=== PATIENT | male | born 1980 | race Caucasian/White ===

== ENCOUNTER 2017-01-31 07:21 | Inpatient (IN) | payer OTHER ==
--- NOTE | ~2017-01-31 | DS ---
Unit #: [id number] #: [id number] Patient: [facility]AND[facility] [id number] [facility] [address] [place] [address] [id number] I MR#: [id number] NAME: BENNY SANDERS ROOM: P122 Age: 36 Sex: M Admission Date: 01/31/2017 : 1980 Discharge Date: 02/06/2017 Attending Physician: Antonina Mar M.D. Primary Care Physician: Primary Care Physician No DISCHARGE SUMMARY IDENTIFYING DATA Mr. Sanders is a 36-year-old single white male, who is a resident of [place], [place], and was transferred to us from [facility] in [place], [place]. DISCHARGE DIAGNOSES Psychiatric: Major depressive disorder, recurrent, moderate, without psychotic features. Medical: None. Stressors: Moderate psychosocial stressors. HISTORY OF PRESENT ILLNESS Please see initial psychiatric evaluation for details. PAST PSYCHIATRIC HISTORY Please see initial psychiatric evaluation for details. PAST MEDICAL HISTORY Please see initial psychiatric evaluation for details. HOSPITAL COURSE The patient was admitted to the adult psychiatric unit at [facility] herrera Joseph and was oriented to the hospital environment. Routine p.r.n. medications were initiated, and he was started on Celexa 20 mg a day as an antidepressant and was closely monitored. He was taking the medications regularly and was tolerating them fairly well and was able to show a decent and therapeutic response with improvement in depression and anxiety and was willing to continue treatment on an outpatient basis and as such, it was decided that he will be discharged home and will continue treatment on an outpatient basis. DISCHARGE MEDICATIONS Celexa 20 mg a day for depression. DISCHARGE CONDITION Stable. PROGNOSIS Fair. Dictated by... Antonina Mar M.D. Unit #: [id number] #: [id number] Patient: BENNY SANDERS IAA/modl TD: 02/06/2017 06:58 JOB #: [id number] DISCHARGE SUMMARY Page 1 of 1 X Antonina Mar MD X DISCHARGE SUMMARY
--- NOTE | ~2017-01-31 | PN ---
Unit #: [id number] #: [id number] Patient: BENNY CHO [id number] [facility] [address] [place] [address] [id number] MR#: [id number] NAME: BENNY CHO ROOM: P122 Age: 36 Sex: M Admission Date: 01/31/2017 : 1980 Attending Physician: Antonina Mar M.D. Admitting Physician: Antonina Mar M.D. Primary Care Physician: Primary Care Physician Melia AMAYA PROGRESS NOTES DATE 02/05/2017 DISCUSSION Mr. Cho is a 36-year-old, white male who was seen today and chart was reviewed and case was discussed with the staff. He reports doing much better and has been showing improvement in his depression and anxiety and has been cooperative with compliant with the treatment recommendations. He has been taking the medication and tolerating them fairly well with no reported side effects. MENTAL STATUS EXAM Young white male who was casually dressed with fair personal hygiene, appears to be in no acute distress or discomfort. He was awake and alert on interaction with intact orientation. His mood was anxious with congruent affect. He denies any suicidal or homicidal ideation. His insight and judgement remains slightly impaired. TREATMENT PLAN 1. We will continue him on his current medications and treatment protocol. We will monitor his response to the medication and make further adjustments as needed. 2. We will continue to follow up. Dictated by... Ravin Chambers/ming TD: 02/05/2017 23:21 JOB #: [id number] Unit #: [id number] #: [id number] Patient: BENNY CHO PEACHERYLE PROGRESS NOTES Page 1 of 1 X Antonina Mar MD PROGRESS NOTE
--- NOTE | ~2017-01-31 | PA ---
Unit #: [id number] #: [id number] Patient: BENNY SANDERS [id number] [facility] [address] [place] [address] [id number] I MR#: [id number] NAME: BENNY SANDERS ROOM: P110 Age: 36 Sex: M Admission Date: 01/31/2017 : 1980 Date of Assessment: Attending Physician: Antonina Mar M.D. Admitting Physician: Antonina Mar M.D. Primary Care Physician: Primary Care Physician No PSYCHIATRIC ASSESSMENT DATE OF SERVICE 02/01/2017. IDENTIFYING DATA Mr. Sanders is a 36-year-old single white male, who is a resident of [place], [place], and was transferred to us from [facility] in [place], [place]. CHIEF COMPLAINT "I overdosed on 20 baclofen in a suicide attempt." HISTORY OF PRESENT ILLNESS Mr. Sanders is a 36-year-old white male, who was taken to [facility] in [place], [place], on 01/29/2017 after he apparently overdosed on 20 baclofen in a suicide attempt and reports feeling like it was his only option to stop hurting at that time. He reports that he has been feeling more and more depressed over the past couple of months and that he had a domestic dispute with his fiance and spent 34 days in residential and reports that he has felt hopeless and worthless and felt like he has nothing to offer to the people he loves and reports that he did not think about how his actions would affect others and aggressive attempt and does endorse significant depression, anxiety, feelings of hopelessness and helplessness, and currently reports still having suicidal thoughts and as such, recommendation for inpatient level of care was made and the patient was medically cleared at [facility] and then transferred to us. SUBSTANCE ABUSE HISTORY The patient denies any alcohol or drug abuse. PAST PSYCHIATRIC HISTORY The patient has had a history of psychiatric treatment several times in [place], and review of the medical records indicate that currently he is not active in any treatment program, is not seeing a psychiatrist, and is not taking any psychotropic medications. PAST MEDICAL HISTORY No acute or chronic medical illnesses. CURRENT MEDICATIONS None. ALLERGIES No known medication allergies. Unit #: [id number] #: [id number] Patient: BENNY SANDERS PERSONAL AND SOCIAL HISTORY A 36-year-old white male, who reports that he is engaged and lives at home with his fiance and has fairly decent social support system. MENTAL STATUS EXAMINATION Young white male, who was casually dressed with fair personal hygiene, appears to be in no acute distress or discomfort. He was awake and alert on interaction with intact orientation to time, place, and person. His mood was anxious and depressed with a congruent affect. His speech was slow and goal directed. He reports having suicidal ideation, but denies any homicidal ideations and also denies any auditory or visual hallucinations. His insight and judgment remain slightly impaired. DIAGNOSTIC IMPRESSION Psychiatric: Major depressive disorder, recurrent, moderate, without psychotic features. Medical: None. Stressors: Moderate psychosocial stressors. TREATMENT PLAN 1. The patient has presented with a history of mood disorder and has been decompensating and will need inpatient hospitalization for safety and stabilization. We will start him back on his home medications and we will adjust the medications and monitor response. 2. Supportive therapy was provided to the patient. 3. Safe, structured, and nourishing environment will be provided. ESTIMATED LENGTH OF STAY 5 to 7 days. ABILITY TO HELP SELF Limited. WILLINGNESS TO HELP SELF The patient appears to be willing to help self. STRENGTHS 1. Communicative. 2. Cooperative. PROBLEMS 1. Chronic dysphoric symptoms. 2. Chronic chemical dependency. 3. Poor social support system. DISCHARGE CRITERIA This will be contingent upon the patient's ability to show resolution of his depression and anxiety and his ability to stay safe to himself, particularly after discharge from the hospital. Dictated by... Ravin Chambers/sanket TD: 02/01/2017 13:36 Unit #: [id number] #: [id number] Patient: BENNY SANDERS JOB #: [id number] PSYCHIATRIC ASSESSMENT Page 1 of 1 X Antonina Mar MD X PSYCHIATRIC ASSESSMENT
--- NOTE | ~2017-01-31 | PN ---
Unit #: [id number] #: [id number] Patient: BENNY CHO [id number] [facility] [address] [place] [address] [id number] I MR#: [id number] NAME: BENNY CHO ROOM: P110 Age: 36 Sex: M Admission Date: 01/31/2017 : 1980 Attending Physician: Antonina Mar M.D. Admitting Physician: Antonina Mar M.D. Primary Care Physician: Primary Care Physician Melia AMAYA PROGRESS NOTES DATE 02/02/2017 Mr. Cho is a 36-year-old man who was seen today and chart was reviewed and the case was discussed with the staff. agitation and aggression. . MENTAL STATUS EXAMINATION Young white male who was casually dressed with fair personal hygiene, appears to be in no acute distress or discomfort. He was awake and alert on interaction with intact orientation. His mood was anxious with congruent affect. He denies any suicidal or homicidal ideation. TREATMENT PLAN 1. We will continue him on his current medications and treatment protocol. We will monitor his response to the medications and make further adjustments as needed. 2. We will continue to follow up. Dictated by... Ravin Chambers/modl TD: 02/04/2017 06:45 JOB #: [id number] [facility] PROGRESS NOTES Page 1 of 1 X Antonina Mar MD PROGRESS NOTE
--- NOTE | ~2017-01-31 | PN ---
Unit #: [id number] #: [id number] Patient: BENNY CHO [id number] [facility] [address] [place] [address] [id number] I MR#: [id number] NAME: BENNY CHO ROOM: P110 Age: 36 Sex: M Admission Date: 01/31/2017 : 1980 Attending Physician: Antonina Mar M.D. Admitting Physician: Antonina Mar M.D. Primary Care Physician: Primary Care Physician Melia GERBER NOTES DATE OF SERVICE: 02/04/2017 SUBJECTIVE Mr. Cho is a 36-year-old white male, who was seen today and chart was reviewed, and case was discussed with the staff. He has been anxious, withdrawn, and rather seclusive to himself, and though has been exhibiting persistent depressive symptoms, he was exhibiting a positive attitude. He has been taking the medications and tolerating them fairly well with no reported side effects. MENTAL STATUS EXAMINATION Young white male, who was casually dressed with fair personal hygiene, appears to be in no acute distress or discomfort. He was awake and alert on interaction with intact orientation. He has been anxious with a congruent affect. His speech was slow and goal directed. He denies any suicidal ideations or homicidal ideations and also denies any auditory or visual hallucinations. His insight and judgment remain slightly impaired. TREATMENT PLAN 1. We will continue him on his current medications and treatment protocol. We will monitor his response to medications and make further adjustments as needed. 2. We will continue to follow up. Dictated by... Ravin Chambers/sanket TD: 02/05/2017 00:36 JOB #: [id number] Unit #: [id number] #: [id number] Patient: BENNY CHO MONIQUE PROGRESS NOTES Page 1 of 1 X Antonina aMr MD PROGRESS NOTE
--- NOTE | ~2017-01-31 | HP ---
Unit #: [id number] #: [id number] Patient: BENNY CHO [id number] [place] [address] [id number] I MR#: [id number] NAME: BENNY CHO ROOM: P110 Age: 36 Sex: M Admission Date: 01/31/2017 : 1980 Attending Physician: Antonina Mar M.D. Admitting Physician: Antonina Mar M.D. Primary Care Physician: Primary Care Physician No HISTORY AND PHYSICAL HISTORY OF PRESENT ILLNESS Benny is a 36-year-old male admitted on 01/31/[address] [place] [address] with suicidal ideation with an attempt to overdose on baclofen. PAST MEDICAL HISTORY None. PAST SURGICAL HISTORY None. SOCIAL HISTORY Smokes half pack of cigarettes daily. Occasional alcohol use. No illegal drug use. He is currently single and living with his fiance. FAMILY HISTORY Noncontributory. REVIEW OF SYSTEMS CONSTITUTIONAL: No fever or chills. HEENT: Denies any sore throat, ear pain or runny nose. CARDIOVASCULAR: Denies chest pain, irregular heart rhythm or palpitations. CHEST: Denies shortness of breath or cough. No hemoptysis. GASTROINTESTINAL: Denies nausea, vomiting, diarrhea or chronic constipation. ENDOCRINE: Denies history of increased thirst or urination. No recent significant weight loss or gain. GENITOURINARY: Denies dysuria, frequency, or hematuria. SKIN: Denies any rashes. HEMATOLOGIC: Denies history of increased bleeding or bruising. MUSCULOSKELETAL: Denies any hot, swollen joints. No generalized muscle pain. NEUROLOGIC: Denies problems with vision or speech. No frequent, severe headaches. No numbness, tingling or weakness in any extremities. Denies loss of bladder or bowel control. CURRENT MEDICATIONS None. ALLERGIES None. PHYSICAL EXAMINATION GENERAL: Alert, oriented, no acute distress. Unit #: [id number] #: [id number] Patient: BENNY CHO VITAL SIGNS: Blood pressure 144/96, heart rate 72, respirations 18. HEIGHT: 5 feet 7. WEIGHT: 183 pounds. SKIN: Warm, dry. No rashes or lesions, track mitchell, cuts, etc. HEENT: Normocephalic. TMs not viewed. Oronasal passages clear. Conjunctivae clear. PERRLA. EOM is intact. NECK: No lymphadenopathy or thyromegaly. HEART: Regular rate and rhythm. No murmur, gallop, or rub. LUNGS: Clear to auscultation bilaterally. ABDOMEN: Soft, nontender without palpable masses or hepatosplenomegaly. : Not assessed. EXTREMITIES: No evidence of cyanosis, clubbing, or edema. Moves all extremities independently without obvious deficit. NEUROLOGICAL: Grossly within normal limits. Cranial Nerves: II: Visual waters are intact. III, IV AND : Extraocular movements are intact. Pupils are equal, round and reactive to light. V: Facial sensation is grossly normal. VII: Facial movements and expression are normal. VIII: Auditory acuity grossly intact. IX, X: Uvula is midline. Phonation is normal. XI: Patient shrugs shoulders and turns head normally. XII: Tongue protrudes in the midline. Sensory and Motor Function: Sensory and motor sensation is grossly normal. Motor: moves all extremities well. Coordination: Gait is normal. Deep Tendon Reflexes: Intact. IMPRESSION Psychiatric admission. RECOMMENDATIONS PSYCHIATRIC: Per psychiatrist. MEDICAL: No contraindication to participating in this facility's activities. MEDICAL PROGNOSIS Good. MEDICAL CONDITION Stable. Dictated by... Say Brice/maritza TD: 02/02/2017 07:59 JOB #: [id number] Unit #: [id number] #: [id number] Patient: BENNY CHO HISTORY AND PHYSICAL Page 1 of 1 X TIMO COLON APRN X HISTORY AND PHYSICAL
--- NOTE | ~2017-01-31 | PN ---
Unit #: [id number] #: [id number] Patient: BENNY CHO [id number] [facility] [address] [place] [address] [id number] I MR#: [id number] NAME: BENNY CHO ROOM: P110 Age: 36 Sex: M Admission Date: 01/31/2017 : 1980 Attending Physician: Antonina Mar M.D. Admitting Physician: Antonina Mar M.D. Primary Care Physician: Primary Care Physician Melia AMAYA PROGRESS NOTES DATE 02/03/2017 DISCUSSION Mr. Cho is a 36-year-old, white male who was seen today and chart was reviewed and case was discussed with the staff. He has been anxious, withdrawn and rather seclusive to himself. Meanwhile, he has been cooperative with the treatment recommendations. He has been taking the medication and tolerating them fairly well with no reported side effects. MENTAL STATUS EXAM Young white male who was casually dressed with fair personal hygiene, appears to be in no acute distress or discomfort. He was awake and alert on interaction with intact orientation. His mood was anxious with congruent affect. He denies any suicidal or homicidal ideation. His insight and judgement remains slightly impaired. TREATMENT PLAN 1. We will continue him on his current medications and treatment protocol. We will monitor his response and make further adjustments as needed. 2. We will continue to follow up. Dictated by... Ravin Chambers/ming TD: 02/05/2017 05:24 JOB #: [id number] Unit #: [id number] #: [id number] Patient: BENNY CHO [facility] PROGRESS NOTES Page 1 of 1 X Antonina Mar MD PROGRESS NOTE
[2017-02-01 10:06] LABS: THYROID STIMULATING HORMONE 3.13 uIU/ml (0.34-5.60)
[2017-02-01 10:12] LABS: ALBUMIN SERUM 3.7 g/dL (3.5-5.0); BILIRUBIN,TOTAL 0.5 mg/dL (0.2-2.0); BUN/CREATININE RATIO 13.33; CREATININE SERUM 0.9 mg/dL (0.6-1.4); GLOM FILT RATE Estimated 110.3 mL/min (>60); POTASSIUM 4.3 mmol/L (3.5-5.1); PROTEIN TOTAL SERUM 6.1 g/dL (6.0-8.3)
[2017-02-01 10:13] LABS: FREE THYROXIN (T4) 0.87 ng/dL (0.58-1.64)
== END 2017-02-06 09:45 | disposition home or self-care (01) | DRG 885 ==
LOC: P1S 21:52
PROVIDERS: Psychiatry & Neurology Psychiatry
DX: F33.1 Major depressive disorder, recurrent, moderate (principal); R45.851 Suicidal ideations; T42.8X2D Poisoning by antiparkinsonism drugs and other central muscle-tone depressants, intentional self-harm, subsequent encounter; F17.210 Nicotine dependence, cigarettes, uncomplicated
CPT/HCPCS: 80053; 84439; 84443